=== PATIENT | female | born 1990 | race Caucasian/White ===

== ENCOUNTER 2016-04-24 12:03 | Emergency (ER) | payer MEDICARE, MEDICAID ==
--- NOTE | ~2016-04-24 | ER ---
PATIENT'S NAME: MARIELA BERMAN [facility] AGE: 25 Y [address] ROOM: [place] [address] LOCATION: [facility] ADMIT DATE: 04/24/2016 ER/Outpatient Report DISCHARGE DATE: 04/24/2016 FAMILY PHYSICIAN: Erik Meyer PA-C ATTENDING PHYSICIAN: Xander Rubio Time of Arrival: 1205 hours. Time of Evaluation: 1207 hours. CHIEF COMPLAINT: Right lower quadrant abdominal pain. HISTORY OF PRESENT ILLNESS: The patient states she has been having problems with right mid abdominal pain off and on. Has been to see a urologist, was diagnosed with an overactive bladder. Did have a CT scan of her abdomen this week at [place], was told that she has a mass to the right ovary. She did see Dr. Murcia, sql data architect. She is scheduled to have a right oophorectomy on 04/28/[address] [place] [address] Murcia. She states the pain is more severe today than what she has been having. States she is taking tramadol without any relief. States she is nauseated and vomited x1 yesterday. Had diarrhea type stool yesterday morning. Denies feeling fever, however, is having chills. Denies having any urinary frequency or pain with urination. ALLERGIES: SHE HAS NO KNOWN ALLERGIES. CURRENT MEDICATIONS: On her chart and were reviewed by me. PAST MEDICAL HISTORY: Polycystic ovary syndrome, overactive bladder, migraines, anxiety, and depression. PAST SURGICAL HISTORY: Negative. SOCIAL HISTORY: She lives at home. Denies use of tobacco, drugs, or alcohol. REVIEW OF SYSTEMS: All negative other than those mentioned in the HPI. When the patient was further questioned regarding her visit to the urologist, it is found out that she had a cystogram done and was started on Cipro at that time. PATIENT'S NAME: MARIELA BERMAN [facility] AGE: 25 Y [address] ROOM: [place] [address] LOCATION: [facility] ADMIT DATE: 04/24/2016 ER/Outpatient Report DISCHARGE DATE: 04/24/2016 FAMILY PHYSICIAN: Erik Meyer PA-C ATTENDING PHYSICIAN: Xander Rubio PHYSICAL EXAMINATION: VITAL SIGNS: Weight 81.1 kg, blood pressure is 137/81, pulse of 84, respirations 14, temperature of 97.9 tympanic, O2 saturation is 89% on room air. GENERAL: She is awake, alert, and oriented x4. SKIN: Her skin is pink, warm, and dry. RESPIRATIONS: Even and nonlabored. Lung sounds are clear. HEART: Regular rate and rhythm. ABDOMEN: Soft and nondistended. Bowel sounds are present. She is tender lower abdomen but no guarding is noted. EMERGENCY DEPARTMENT COURSE: Clean-catch UA was obtained upon arrival to the ER. It shows white count of 10 to 20 with moderate bacteria. IMPRESSION: Abdominal pain. Urinary tract infection. PLAN: The patient was given a prescription for Bactrim. She is to start that and stop the Cipro. Fluids. Rest. Tylenol or ibuprofen as needed. Continue the tramadol as needed for pain. She is to keep her appointment with Dr. Murcia, Wednesday. Call him sooner if symptoms worsen. She verbalized understanding. IGNACIA MCNEIL APRN FOR MD ERASMO PUGA/ciera /[id number] d: 04/24/161910 t: 05/04/161730, OUTPATIENT REPORT
[2016-04-24 12:40] LABS: BILIRUBIN URINE NEGATIVE (NEGATIVE); BLOOD URINE NEGATIVE /UL (NEGATIVE); COLOR URINE YELLOW (YELLOW); GLUCOSE URINE NEGATIVE (NEGATIVE); KETONE URINE NEGATIVE (NEGATIVE); LEUKOCYTES URINE 25 /UL (NEGATIVE); NITRITE URINE NEGATIVE (NEGATIVE); PROTEIN URINE 15 mg/dL (NEGATIVE); SPEC GRAVITY URINE 1.025 (1.003-1.035); TURBIDITY URINE CLEAR (CLEAR); UROBILINOGEN URINE NORMAL (NORMAL)
[2016-04-24 12:52] LABS: RBC URINE RARE #/HPF (NEGATIVE)
[2016-04-24 12:53] LABS: BACTERIA URINE MODERATE (NEGATIVE); MUCUS URINE 4+ (NEGATIVE)
== END 2016-04-24 13:05 | disposition disaster alternative care site (69) ==
LOC: GMED 12:03
PROVIDERS: Emergency Medicine
DX: N39.0 Urinary tract infection, site not specified (principal); F32.9 Major depressive disorder, single episode, unspecified; F41.9 Anxiety disorder, unspecified; Z79.899 Other long term (current) drug therapy

== ENCOUNTER 2016-05-27 19:02 | Emergency (ER) | payer MEDICARE, MEDICAID ==
--- NOTE | ~2016-05-27 | ER ---
PATIENT'S NAME: MARIELA BERMAN [facility] AGE: 26 Y [address] ROOM: [place] [address] LOCATION: ED ADMIT DATE: 05/27/2016 ER/Outpatient Report DISCHARGE DATE: 05/27/2016 FAMILY PHYSICIAN: Physician, Unknown ATTENDING PHYSICIAN: Felipa Fuentes Time of Arrival: 1902 hours. Time of Evaluation: 1925 hours. CHIEF COMPLAINT: Vomiting, abdominal pain, headache, diarrhea. HISTORY OF PRESENT ILLNESS: This is a 26-year-old female, who presents to the ER. She states that she has not been feeling well since yesterday. She states she has been having a stomachache. She has had nausea, vomiting, and diarrhea. She states she has approximately had 10 emesis and 3 diarrheal bowel movements. She does not believe she has been running any fevers. She has had no troubles with urination. She describes her abdominal pain is sharp and stabbing in nature. The patient states that no one else at home is ill at this time. She states that she has had no recent travel, no recent antibiotic therapy. ALLERGIES: NO KNOWN ALLERGIES. MEDICATIONS: Please see medication list in nurse's notes. PAST MEDICAL AND SURGICAL HISTORY: Migraines, acid reflux, bipolar, depression, anxiety, hernia repair, cholecystectomy, and Aldridge's. SOCIAL HISTORY: Denies smoking, drug, or alcohol use. REVIEW OF SYSTEMS: A 10-point review of system was completed and was negative with the exception of those discussed in the HPI. PHYSICAL EXAMINATION: VITAL SIGNS: Height 5 feet 5 inches stated, weight 81.5 kg taken, blood pressure is 145/81, pulse 76, respirations 18, temperature 97.8 degrees tympanically, saturations 98% on room air. Didi Coma Score is 15. GENERAL: Alert, calm, well-developed 26-year-old, in no acute distress. HEENT: Head: Normocephalic. Eyes: Pupils are equal and reactive to light. PATIENT'S NAME: MARIELA BERMAN [facility] AGE: 26 Y [address] ROOM: [place] [address] LOCATION: ED ADMIT DATE: 05/27/2016 ER/Outpatient Report DISCHARGE DATE: 05/27/2016 FAMILY PHYSICIAN: Physician, Unknown ATTENDING PHYSICIAN: Felipa Fuentes She does display moist mucous membranes. LUNGS: Clear to auscultation bilaterally. No wheezes or crackles. Normal respiratory effort. HEART: Regular rate and rhythm. No lifts, thrills, or murmurs. ABDOMEN: Soft. She has generalized tenderness in her midepigastric region. She has no guarding. No rebound tenderness. She has good bowel sounds throughout. No masses are palpated. EXTREMITIES: No clubbing, cyanosis, or edema. She has full range of motion of all limbs. LABORATORY DATA AND X-RAYS: CBC: White count is 9.0, hemoglobin is 12.9, platelets 292, ANC is 5.0. Anion gap is 9.7. Calcium is 8.4. A/G ratio 0.9, otherwise unremarkable. Urinalysis was negative for any infection. IMPRESSION: 1. Gastroenteritis with abdominal discomfort. 2. Slight headache. ASSESSMENT AND PLAN: We did start an IV here in the emergency room, and we did give her some IV fluids while she was here. We did give her a total of 4 mg of morphine for her pain through her IV as well as 4 mg of Zofran. The patient had no stooling, no vomiting while she was here. We will dismiss her to home. She needs to continue to push fluids. She needs to take Zofran to use as directed. She needs to do small amounts of fluids frequently, bland diet. Follow up with her primary care physician in the next 2 to 3 days if she is not improving. The patient understands and agrees with care. MOLINA FAUST PA-C FOR MD ROHAN BOX/ciera /[id number] d: t: 06/04/16 1657, OUTPATIENT REPORT
[2016-05-27 20:06] LABS: BILIRUBIN URINE NEGATIVE (NEGATIVE); BLOOD URINE 10 /UL (NEGATIVE); GLUCOSE URINE NEGATIVE (NEGATIVE); KETONE URINE 5 mg/dL (NEGATIVE); LEUKOCYTES URINE 25 /UL (NEGATIVE); NITRITE URINE NEGATIVE (NEGATIVE); PROTEIN URINE 15 mg/dL (NEGATIVE); SPEC GRAVITY URINE 1.025 (1.003-1.035); UROBILINOGEN URINE NORMAL (NORMAL)
[2016-05-27 20:12] LABS: COLOR URINE YELLOW (YELLOW); TURBIDITY URINE 1+ (CLEAR)
[2016-05-27 20:13] LABS: BASOPHIL % 0.3 %; EOSINOPHIL # 0.1 K/uL (0.0-0.5); EOSINOPHIL % 1.2 %; HEMATOCRIT 40.1 % (33.0-46.0); HEMOGLOBIN 12.9 g/dL (11.0-15.0); IMMATURE GRANULOCYTE % 0.2 %; LYMPHOCYTE # 3.3 K/uL (0.8-4.0); LYMPHOCYTE % 36.6 %; MCH 30.4 pg (27.0-34.0); MCHC 32.2 gm/dL (32.0-36.5); MCV 94.4 fl (83.0-98.0); MONOCYTE # 0.5 K/uL (0.0-1.0); MONOCYTE % 5.7 %; MPV 9.1 fl (9.4-12.4); NRBC % 0 /100WBC (0-0.00); PLATELET COUNT 292 K/uL (150-450); RBC 4.25 M/uL (3.50-5.00); RDW-CV 11.9 % (11.9-14.6)
[2016-05-27 20:18] LABS: RBC URINE 0-2 #/HPF (NEGATIVE)
[2016-05-27 20:19] LABS: BACTERIA URINE MODERATE (NEGATIVE); MUCUS URINE 3+ (NEGATIVE)
[2016-05-27 20:30] LABS: ALBUMIN 3.7 gm/dL (3.5-5.0); ALK PHOS 100 IU/L (33-138); ALT 18 IU/L (12-78); ANION GAP 9.7 (10.0-19.0); AST 12 IU/L (10-40); BLOOD UREA NITROGEN 14 mg/dL (6-24); CALCIUM 8.4 mg/dL (8.5-10.5); CHLORIDE 104 mMol/L (96-110); CO2 30 mMol/L (22-32); ESTIMATED GFR (MDRD EQUATION) > 60; POTASSIUM 3.7 mMol/L (3.7-5.1); SODIUM 140 mMol/L (135-145); TOTAL BILIRUBIN 0.6 mg/dL (0.0-1.5); TOTAL PROTEIN 7.6 g/dL (6.0-8.4)
== END 2016-05-27 21:45 | disposition disaster alternative care site (69) ==
LOC: GMED 19:02
PROVIDERS: Family Medicine
DX: K52.9 Noninfective gastroenteritis and colitis, unspecified (principal); R51 Headache; F31.9 Bipolar disorder, unspecified; Z90.49 Acquired absence of other specified parts of digestive tract
CPT/HCPCS: J2270; J2405; J7030

== ENCOUNTER 2016-07-19 20:06 | Emergency (ER) | payer MEDICARE, MEDICAID ==
--- NOTE | ~2016-07-19 | ER ---
PATIENT'S NAME: MARIELA BERMAN [facility] AGE: 26 Y [address] ROOM: [place] [address] LOCATION: ED ADMIT DATE: 07/19/2016 ER/Outpatient Report DISCHARGE DATE: 07/19/2016 FAMILY PHYSICIAN: Erik Meyer PA-C ATTENDING PHYSICIAN: Felipa Fuentes Time of Arrival: 2009 hours. Time of Exam: 2009 hours. CHIEF COMPLAINT: Abdominal pain. HISTORY OF PRESENT ILLNESS: The patient states having generalized right upper quadrant abdominal pain and vomiting, started yesterday. In the last 24 hours, she has vomited over 11 times she states. Has not noticed any blood. Has had diarrheal stool. Denies having fever or chills. States that she has had this abdominal pain off and on for quite some time and has seen a clothes model. He has her scheduled to see another specialist. States that she did put a heating pad on her abdomen today with minimal relief. ALLERGIES: NO KNOWN ALLERGIES. CURRENT MEDICATIONS: On the chart and reviewed by me. PAST MEDICAL HISTORY: GERD, migraines, polycystic ovary syndrome, chronic abdominal pain. PAST SURGERIES: Fundoplication, cholecystectomy. Last period was April 2016. Periods are irregular with the polycystic ovary disease. Denies any chance of being . SOCIAL HISTORY: She denies use of tobacco, drugs, or alcohol. REVIEW OF SYSTEMS: All negative other than those mentioned in HPI. PHYSICAL EXAMINATION: VITAL SIGNS: She weighed 78.8 kg; blood pressure was 139/85; pulse of 87; respirations 16; temperature of 97.2, tympanic; O2 saturation was 99% on room air. PATIENT'S NAME: MARIELA BERMAN [facility] AGE: 26 Y [address] ROOM: [place], [place] [address] LOCATION: ED ADMIT DATE: 07/19/2016 ER/Outpatient Report DISCHARGE DATE: 07/19/2016 FAMILY PHYSICIAN: Erik Meeyr PA-C ATTENDING PHYSICIAN: Felipa Fuentes GENERAL: She is awake, alert, and oriented x4. SKIN: [place], warm, and dry. RESPIRATIONS: Even and nonlabored. LUNGS: Lung sounds are clear throughout. HEART: Regular rate and rhythm. ABDOMEN: Soft and nondistended. Bowel sounds are present. She has generalized tenderness on palpation of the right upper quadrant. EMERGENCY DEPARTMENT COURSE: Saline lock was initiated. Lab work was drawn. CBC is within normal limits. Chem panel is within normal limits. Amylase is 42, lipase is 104. Fluids of normal saline were started at a wide-open rate. She was given Zofran 4 mg IV. Rested comfortably on the cart. States continues to be nauseated and in pain on recheck. Toradol and compazine were given. IMPRESSION: Abdominal pain, chronic in nature. PLAN: Home, rest, fluids. Continue her current medications. Follow up with her primary provider in the next 2-3 days if symptoms persist. She verbalized understanding. IGNACIA MCNEIL APRN FOR MD ERASMO BOX/ciera /[id number] d: 07/20/16 0229 t: 07/23/16 1427, OUTPATIENT REPORT
[2016-07-19 20:53] LABS: BASOPHIL % 0.4 %; EOSINOPHIL # 0.1 K/uL (0.0-0.5); EOSINOPHIL % 1.3 %; HEMOGLOBIN 14.1 g/dL (11.0-15.0); IMMATURE GRANULOCYTE % 0.1 %; LYMPHOCYTE # 2.5 K/uL (0.8-4.0); LYMPHOCYTE % 28.9 %; MCH 30.1 pg (27.0-34.0); MCV 93.8 fl (83.0-98.0); MONOCYTE # 0.5 K/uL (0.0-1.0); MPV 9.2 fl (9.4-12.4); NEUTROPHIL # (ANC) 5.4 K/uL (1.8-7.8); NEUTROPHIL % 63.3 %; NRBC % 0 /100WBC (0-0.00); PLATELET COUNT 335 K/uL (150-450); RBC 4.69 M/uL (3.50-5.00); RDW-CV 11.6 % (11.9-14.6); WBC 8.5 K/uL (4.0-11.0)
[2016-07-19 21:10] LABS: ALBUMIN 3.9 gm/dL (3.5-5.0); ALK PHOS 103 IU/L (33-138); ALT 23 IU/L (12-78); ANION GAP 14.2 (10.0-19.0); AST 16 IU/L (10-40); BLOOD UREA NITROGEN 14 mg/dL (6-24); CALCIUM 9.4 mg/dL (8.5-10.5); CHLORIDE 104 mMol/L (96-110); CO2 26 mMol/L (22-32); CREATININE 0.9 mg/dL (0.5-1.1); ESTIMATED GFR (MDRD EQUATION) > 60; POTASSIUM 4.2 mMol/L (3.7-5.1); SODIUM 140 mMol/L (135-145); TOTAL BILIRUBIN 0.6 mg/dL (0.0-1.5); TOTAL PROTEIN 8.3 g/dL (6.0-8.4)
== END 2016-07-19 22:17 | disposition disaster alternative care site (69) ==
LOC: GMED 20:06
PROVIDERS: Family Medicine
DX: R10.11 Right upper quadrant pain (principal); K21.9 Gastro-esophageal reflux disease without esophagitis; G89.29 Other chronic pain; G43.909 Migraine, unspecified, not intractable, without status migrainosus; E28.2 Polycystic ovarian syndrome; Z90.49 Acquired absence of other specified parts of digestive tract
CPT/HCPCS: J0780; J1885; J2405; J7030